=== PATIENT | female | born 1930 | race Hispanic/Latino ===

== ENCOUNTER 2017-08-07 08:00 | Inpatient (IN) | payer MEDICARE ==
[~2017-08-07] VITALS: Ht 147.3 cm; Wt 41.7 kg
[~2017-08-07 08:00] MED LIST: DONE10TA43 PO; LEVO75 PO; PARO10TA87 PO
[2017-08-07 08:55] VITALS: BP 55/37
[2017-08-07 09:43] LABS: BASOPHILS % (AUTO) 0.6 % (0.0-5.0); EOSINOPHILS % (AUTO) 4.2 % (0.0-8.0); HEMATOCRIT 28.8 % (36-48); MEAN CORPUSCULAR HEMOGLOBIN 29.8 pg (27.0-33.0); MEAN CORPUSCULAR HGB CONC 33.4 g/dL (32.0-36.0); MEAN CORPUSCULAR VOLUME 89.3 fL (79-99); MONOCYTES % (AUTO) 9.9 % (3.0-13.0); NEUTROPHILS % (AUTO) 59.3 % (40.0-77.0); NUCLEATED RED BLOOD CELLS 0.1 % (0.0-0.19); PLATELET COUNT (AUTO) 133 K/uL (130-400); RED BLOOD CELL COUNT(AUTO) 3.23 MIL/uL (4.00-5.50); RED CELL DISTRIBUTION WIDTH 14.4 % (11.0-15.5); WHITE BLOOD COUNT (AUTO) 4.9 K/uL (4.8-10.8)
[2017-08-07 09:44] LABS: APPEARANCE,URINE Clear (CLEAR); BILIRUBIN,URINE Negative (NEGATIVE); COLOR,URINE Yellow (YELLOW); GLUCOSE, URINE (UA) Negative (NEGATIVE); KETONES,URINE Negative (NEGATIVE); LEUKOCYTE ESTERASE ,URINE Moderate (NEGATIVE); NITRATE,URINE Negative (NEGATIVE); OCCULT BLOOD,URINE Negative (NEGATIVE); PH,URINE 6.5 (5.0-8.0); PROTEIN,URINE Negative (NEGATIVE)
[2017-08-07 09:50] LABS: BACTERIA,URINE Rare /HPF (None Seen); SQUAMOUS EPITHELIAL CELL,UR Rare /LPF (0-2); WBC,URINE 0-1 /HPF (0-1)
[2017-08-07 09:51] LABS: POTASSIUM 3.5 mmol/L (3.5-5.1)
[2017-08-07] MEDS ORDERED: ATOR10 PO (09:53)
[2017-08-07 09:55] LABS: INR 1.08 (0.85-1.15); PARTIAL THROMBOPLASTIN TIME 25.4 SEC (26.3-35.5); PROTHROMBIN TIME 11.3 SEC (9.6-11.6)
[2017-08-07 09:58] VITALS: BP 87/52
[2017-08-07] MEDS ORDERED: MIDO2.5T PO (10:09)
[2017-08-07] MEDS ORDERED: FAMO20TA8 PO (10:41)
[2017-08-07] MEDS ORDERED: POLY500P30 MC (10:42)
[2017-08-07] MEDS ORDERED: MELA10TA2 PO (10:42)
[2017-08-07] MEDS ORDERED: LACT10SO9 PO (10:44)
[2017-08-07] MEDS ORDERED: SODIUM CHLORIDE 0.9% 1000ML 1,000 ML IV SCH (13:45)
[2017-08-08] VITALS (16 sets, daily range): BP systolic 94–177; BP diastolic 61–103
[2017-08-08 06:31] LABS: HEMATOCRIT 28.9 % (36-48); MEAN CORPUSCULAR HEMOGLOBIN 30.6 pg (27.0-33.0); MEAN CORPUSCULAR HGB CONC 34.6 g/dL (32.0-36.0); MEAN CORPUSCULAR VOLUME 88.5 fL (79-99); PLATELET COUNT (AUTO) 131 K/uL (130-400); RED BLOOD CELL COUNT(AUTO) 3.27 MIL/uL (4.00-5.50); RED CELL DISTRIBUTION WIDTH 14.2 % (11.0-15.5); WHITE BLOOD COUNT (AUTO) 5.6 K/uL (4.8-10.8)
[2017-08-08] MEDS ORDERED: HEPARIN SODIUM 1000UNIT/ML 10ML VIAL ONE ×3 (06:47→09:49)
[2017-08-08] MEDS ORDERED: ISOVUE-300 100 ML VIAL IV ONE (06:47)
[2017-08-08] MEDS ORDERED: LIDOCAINE PF 2% 5ML ABBOJECT ONE (06:57)
[2017-08-08] MEDS ORDERED: SUCCINYLCHOLINE 200MG/10ML SYR ONE (06:57)
[2017-08-08] MEDS ORDERED: ONDANSETRON HCL 4 MG/2 ML VIAL ONE (06:57)
[2017-08-08] MEDS ORDERED: DEXAMETHASONE SOD PHOSPHATE 10MG/ML 1ML VIAL ONE (06:57)
[2017-08-08] MEDS ORDERED: NEOSTIGMINE METHYLSULFATE 1MG/ML IV ONE (06:57)
[2017-08-08] MEDS ORDERED: GLYCOPYRROLATE 0.2 MG/ML 5 ML VIAL ONE (06:57)
[2017-08-08] MEDS ORDERED: MIDAZOLAM HCL 1 MG/ML 2ML VIAL ONE (06:58)
[2017-08-08] MEDS ORDERED: PROPOFOL 10 MG/ML 20ML VIAL IV ONE (06:58)
[2017-08-08] MEDS ORDERED: PHENYLEPHRINE HCL 10 MG/ML 1ML VIAL IV ONE (06:58)
[2017-08-08] MEDS ORDERED: FENTANYL CITRATE PF 50 MCG/1 ML 2ML VIAL ONE (06:58)
[2017-08-08] MEDS ORDERED: ROCURONIUM BROMIDE 10MG/1ML 5ML VL ONE (06:59)
[2017-08-08] MEDS ORDERED: CEFAZOLIN SODIUM 1 GM VIAL ONE (07:04)
[2017-08-08] MEDS ORDERED: SODIUM BICARB 50MEQ 50ML VIAL ONE (08:38)
[2017-08-08 08:41] LABS: ABG BASE EXCESS 0.9 mmol/L (-2.0-3.0); ABG PCO2 33 mmHg (32-45)
[2017-08-08] MEDS ORDERED: ACETAMINOPHEN 325 MG TAB PO PRN ×2 (11:00)
[2017-08-08] MEDS ORDERED: TEMAZEPAM 30 MG CAP PO PRN (11:00)
[2017-08-08] MEDS ORDERED: ONDANSETRON HCL 4 MG/2 ML VIAL IV PRN (11:00)
[2017-08-08] MEDS ORDERED: SODIUM CHLORIDE 0.9% 1000ML 1,000 ML IV SCH (11:00)
[2017-08-08] MEDS ORDERED: ACETAMINOPHEN-CODEINE 300/30MG TAB PO PRN ×2 (11:00)
[2017-08-08] MEDS ORDERED: MORPHINE SULFATE 4 MG/1ML SYG IV PRN (11:00)
[2017-08-08] MEDS ORDERED: MORPHINE SULFATE 5 MG/ML VIAL IV PRN (11:00)
[2017-08-08] MEDS ORDERED: LACTULOSE 20 GM/30 ML UDCUP PO PRN (11:00)
[2017-08-08] MEDS ORDERED: HYDRALAZINE HCL 20 MG/ML VIAL ONE (11:02)
[2017-08-08] MEDS: MIDODRINE HCL 5 MG TABLET PO SCH ×2 (14:00→20:56)
[2017-08-08 15:10] LABS: ABG BASE EXCESS -0.5 mmol/L (-2.0-3.0); ABG HCO3 24.5 mmol/L (21.0-28.0); ABG OXYGEN SATURATION 98.6 % (95.0-99.0); ABG PCO2 42 mmHg (32-45)
[2017-08-08] MEDS ORDERED: CEFAZOLIN 2GM / 50 ML 50 ML IV SCH (16:00)
[2017-08-08] MEDS: WATER FOR INJECTION,STERILE 20 ML VIAL IJ SCH (17:32)
[2017-08-08] MEDS: CEFAZOLIN SODIUM 1 GM VIAL IVP SCH (17:32)
[2017-08-08] MEDS ORDERED: ONDANSETRON HCL 4 MG/2 ML VIAL IVP ONE ×2 (18:45→20:00)
[2017-08-08] MEDS: FAMOTIDINE 20MG TAB 20 MG TAB PO SCH (20:56)
[2017-08-08] MEDS ORDERED: ATORVASTATIN CALCIUM 10 MG TABLET PO SCH (21:00)
[2017-08-08] MEDS ORDERED: DONEPEZIL HCL 5 MG TAB PO SCH (21:00)
[2017-08-08] MEDS ORDERED: ***HM***(Melatonin 10 MG) PO SCH (21:00)
[2017-08-09] VITALS (11 sets, daily range): BP systolic 127–172; BP diastolic 67–94
[2017-08-09] MEDS: CEFAZOLIN SODIUM 1 GM VIAL IVP SCH (00:41)
[2017-08-09] MEDS: WATER FOR INJECTION,STERILE 20 ML VIAL IJ SCH (00:43)
[2017-08-09 05:17] LABS: HEMATOCRIT 29.2 % (36-48); MEAN CORPUSCULAR HEMOGLOBIN 30.2 pg (27.0-33.0); MEAN CORPUSCULAR HGB CONC 33.5 g/dL (32.0-36.0); RED BLOOD CELL COUNT(AUTO) 3.25 MIL/uL (4.00-5.50); RED CELL DISTRIBUTION WIDTH 14.4 % (11.0-15.5)
[2017-08-09 05:38] LABS: CREATININE 1.4 mg/dL (0.5-1.5); POTASSIUM 3.7 mmol/L (3.5-5.1)
[2017-08-09 05:44] LABS: PLATELET COUNT (AUTO) 73 K/uL (130-400)
[2017-08-09] MEDS ORDERED: POLYETHYLENE GLYCOL 3350 17 GM POWD.PACK PO PRN (09:00)
[2017-08-09] MEDS ORDERED: LEVOTHYROXINE 75 MCG TABLET PO SCH (09:00)
[2017-08-09] MEDS ORDERED: PAROXETINE HCL 20 MG TABLET PO SCH (09:00)
[2017-08-09] MEDS: MIDODRINE HCL 5 MG TABLET PO SCH (09:00)
[2017-08-09] MEDS: FAMOTIDINE 20MG TAB 20 MG TAB PO SCH (09:08)
== END 2017-08-09 13:00 | disposition home or self-care (01) | DRG 269 ==
LOC: EDSTATUS 08:00 → DAHIP 08-08 05:42 → 2CH 08-08 11:15
PROVIDERS: ADMIT Internal Medicine Cardiovascular Disease; ATTEND Internal Medicine Cardiovascular Disease
PROC: 04V03EZ Restriction of Abdominal Aorta with Branched or Fenestrated Intraluminal Device, One or Two Arteries, Percutaneous Approach (ICD-10-PCS; 2017-08-08)
PROC: B4101ZZ Fluoroscopy of Abdominal Aorta using Low Osmolar Contrast (ICD-10-PCS; 2017-08-08)
PROC: 047A3DZ Dilation of Left Renal Artery with Intraluminal Device, Percutaneous Approach (ICD-10-PCS; principal; 2017-08-08 07:00)
DX: I71.2 Thoracic aortic aneurysm, without rupture (principal); I73.9 Peripheral vascular disease, unspecified; I70.1 Atherosclerosis of renal artery; I71.4 Abdominal aortic aneurysm, without rupture; E78.5 Hyperlipidemia, unspecified; I10 Essential (primary) hypertension; Z95.0 Presence of cardiac pacemaker; F32.9 Major depressive disorder, single episode, unspecified
CPT/HCPCS: 34705; 34713; 36251; 36415; 36600; 37236; 71045; 80048; 81001; 82330; 82435; 82803; 82947; 83605; 84132; 84295; 85018; 85025; 85027; 85347; 85610; 85730; 86850; 86900; 86901; 86922; 87088; 93005; 94002; A4344; A4606; C1725; C1760; C1769; C1887; C1894; J0330; J0360; J0690; J1100; J1644; J2001; J2250; J2370; J2405; J2704; J2710; J3010; J3490; J7030; J7040; J7120; Q9967